=== PATIENT | female | born 1940 | race Caucasian/White ===

== ENCOUNTER → 2018-06-25 12:46 | Outpatient (CLI) | payer MEDICARE, MEDICAID ==
--- NOTE | 2018-06-24 14:59 | NUR ---
PT TO RETURN 06-25-2018 FOR MOD BA WITH SPEECH. SCHEDULING TO GET CORRECT ORDER.
[~2018-06-25 12:46] MED LIST: FERROUS SULFAT325 MG PO; KEPPRA500 MG PO; KEPPRA750 MG PO; LOPERAMIDE HCL2 MG; MELATONIN 3 MG1 TAB
[2018-06-30 07:39] VITALS: BMI 19.0
== END | disposition home or self-care (01) ==
LOC: D.RAD 06-24 13:00
DX: R13.10 Dysphagia, unspecified (principal)

== ENCOUNTER 2018-06-30 06:34 | Day surgery (SDC) | payer MEDICARE, MEDICAID ==
[~2018-06-30] VITALS: Ht 157.5 cm; Wt 47.2 kg
[2018-06-30] MEDS ORDERED: KEPPRA500 MG PO (07:11)
[2018-06-30] MEDS ORDERED: FERROUS SULFAT325 MG PO (07:11)
[2018-06-30] MEDS ORDERED: KEPPRA750 MG PO (07:12)
[2018-06-30] MEDS ORDERED: LOPERAMIDE HCL2 MG (07:13)
[2018-06-30] MEDS ORDERED: MELATONIN 3 MG1 TAB (07:14)
[2018-06-30 07:39] VITALS: BP 121/45; Ht 157.5 cm; Wt 47.2 kg
--- NOTE | 2018-06-30 10:30 | NUR ---
PATIENT HAD A PEG TUBE PLACED TODAY. PEG TUBE MAY BE USED TOMORROW. PATIENT LIVES IN A HALFWAY FACILITY ([facility]). JUDAH STEWART) INSTRUCTED US THAT SHE WOULD CONSULT DIETIAN REGARDING TUBE FEEDING ORDERS. PATIENT DOES HAVE ORDERS FOR A FULL LIQUID DIET PRIOR TO AND AFTER PEG PLACEMENT. PER KURT THE PEG WAS PLACED BECAUSE PATIENT WAS REFUSING TO EAT. JUDAH STEWART) STATED UNDERSTANDING OF THE SITUATION AND ORDERS PER DR. GUO. COLTEN CHIRINOS RN
== END 2018-06-30 11:58 | disposition home or self-care (01) ==
LOC: D.OPS 06:34
DX: R13.12 Dysphagia, oropharyngeal phase (principal); Z86.73 Personal history of transient ischemic attack (TIA), and cerebral infarction without residual deficits; Z01.812 Encounter for preprocedural laboratory examination

== ENCOUNTER → 2018-07-30 12:30 | Outpatient (CLI) | payer MEDICARE, MEDICAID ==
[2018-06-30 07:39] VITALS: BMI 19.0
== END | disposition home or self-care (01) ==
LOC: D.RAD 12:30
PROVIDERS: ATTEND Internal Medicine Geriatric Medicine
DX: R13.12 Dysphagia, oropharyngeal phase (principal)

== ENCOUNTER 2019-12-08 16:22 | Emergency (ER) | payer MEDICARE, MEDICAID ==
[~2019-12-08] VITALS: Ht 157.5 cm; Wt 50.0 kg
[2019-12-08 16:24] VITALS: Ht 157.5 cm; Wt 50.0 kg
[2019-12-08 18:30] VITALS: BP 127/54
== END 2019-12-08 18:32 | disposition home or self-care (01) ==
LOC: D.ER 16:22
DX: K94.23 Gastrostomy malfunction (principal); Z86.73 Personal history of transient ischemic attack (TIA), and cerebral infarction without residual deficits

== ENCOUNTER → 2020-09-14 13:20 | Day surgery (SDC) | payer MEDICARE, MEDICAID ==
[2019-12-08 16:24] VITALS: BMI 20.1
--- NOTE | ~2020-09-14 | HEMODYNAMI ---
PATIENT:MCKAY MANCIA MEDICAL RECORD: [id number] : 42 LOCATION:[facility] ADMISSION DATE: 09/14/20 Generatedon:114:28 Patient name: MCKAY MANCIA Patient #: [id number] SSN: DO B: 1940 Date of study: 09/14/2020 Page: Of Hemodynamic Procedure Report Patient Data Patient Demographics Procedure consent was obtained First Name: MCKAY Gender: Female Last Name: GAVINO : 1940 Patient #: [id number] Age: 80 year(s) Race: Unknown Additional ID: [id number] Contact details Address: [address] [place] [address] rd State: [place] City: [facility] Zip code: [address] Past Medical History Allergies Allergen Reaction Date Comments Reported Adhesive tape 09/14/2020 Admission Admission Data Admission Date: 09/14/2020 Admission Time: 13:20 Procedure Procedure Types Cath Procedure Peripheral Cath Diagnostic Procedure Gastric G Tube Replacement Procedure Description Procedure Date Procedure Date: 09/14/2020 Procedure Start Time: 14:19 Procedure Staff Name Function Rudy Cline MD Performing Physician Mary Courtney RT Shooting Gallery Operator Shayy Blakely RN Nurse Sergio Vazquez RT Scrub Procedure Data Cath Procedure Fluoroscopy Diagnostic fluoroscopy Total fluoroscopy Time: 1.1 time: 1.1 min min Diagnostic fluoroscopy Total fluoroscopy dose: 18 dose: 18 mGy mGy Contrast Material Contrast Material Type Amount (ml) Isovue 300 15 Hemodynamics Rest Pre Cath Intra NCS Post Cath Procedure Log Time Note 14:11:22 Time tracking: Regular hours (M-F 7:00 - 5:00) 14:12:07 Signed procedure consent form obtained from guardian. 14:12:26 Pre-procedure instructions explained to patient. 14:12:27 Pre-op teaching completed and patient verbalized understanding. 14:12:28 Pre-op teaching completed and patient verbalized understanding. 14:12:48 Patient allergic to Adhesive tape 14:12:55 Is the patient allergic to Iodine/contrast media? No. 14:12:58 - 14:13:09 Left abdomen area was prepped with chlora-prep and draped in sterile fashion 14:13:13 - 14:13:20 Use device set IR Diagnostic 14:13:23 Sterile Angiographic Pack opened to sterile field. 14:13:24 Bag Decanter (2002) opened to sterile field. 14:13:33 - 14:16:03 GASTROSTOMY 16FR. TRI-FUNNEL TUBE opened to sterile field. 14:18:53 Physician arrived 14:18:54 --------ALL STOP TIME OUT------ 14:18:55 Final Timeout: patient, procedure, and site verified with staff and physician. All members of the team are in agreement. 14:19:16 Fire Safety Assessment: A--An alcohol-based skin anteseptic being used preoperatively. ::29 Procedure started. :29 Full Disclosure recording started 14::09 16fr tri funnel g tube replaced 14::33 Procedure ended.(Physican Out) ::58 Fluoroscopy time 01.10 minutes. 14:28: Fluoroscopy dose: 18 mGy 14:: Flurop Dose total: 18 14:28:06 Contrast amount:Isovue 300 15ml. 14:28:09 Procedure and supply charges have been captured, reviewed, submitted an d are correct. 14:28:32 Patient transfered to Other with Wheelchair. Device Usage Item Name Manufacture Quantity Catalog Hospital Part Current Minimal Lot# / Number Charge Number Stock Stock Serial# Code Sterile Cardinal 1 [id number] Angiographic Health Pack Bag Decanter Microtek 1 [id number] () [employer] GASTROSTOMY Bard 1 [id number] 16FR. TRI-FUNNEL TUBE Signature Audit [place] Stage Time Signature Unsigned Intra-Procedure 09/14/2020 Mary Courtney 2:28:46 PM RT(R) [facility] [address] [place] [address]
== END | disposition home or self-care (01) ==
LOC: D.RAD 13:20
PROVIDERS: ATTEND Surgery
DX: R13.11 Dysphagia, oral phase (principal)